=== PATIENT | male | born 1975 | race Caucasian/White ===

== ENCOUNTER 2025-04-19 06:13 | Day surgery (SDC) | payer OTHER, SELFPAY ==
[2025-04-19 08:40] VITALS: BP 150/85; BMI 29.7
[2025-04-19 09:00] VITALS: BMI 29.7
[2025-04-19] MEDS: TYLENOL 1000 MG PO (09:00)
--- NOTE | 2025-04-19 09:01 | HP.FOC2 ---
Focused History & Physical
Chief Complaint
HPI:
Chief Complaint: RIH
HPI / Indication for Planned Procedure: 49 y/o male recently seen in outpt follow up for evaluation of right inguinal swell. examination confirmed presence of a RIH. presents today for operative correction
Relevant Past Medical History: Other (GERD, Anxiety)
Relevant Social History: Negative
Relevant Family History: Negative
Relevant Past Surgical History: Positive for (UHR, lap TEP LIH repair with mesh)
Review of Systems
Review of Pertinent Systems: All Systems Negative
Medication
See Medication form for detailed medications: Yes
Medication List (including Herbals & OTC):
famotidine-Ca carb-mag hydrox 10 mg-800 mg-165 mg chewable tablet (Pepcid Complete) 1 tab PO PRN PRN GERD 04/17/25
multivitamin with minerals-folic acid 200 mcg chewable tablet (Multivitamin Gummies) 2 tab PO DAILY 04/17/25
Medications Reviewed: Yes
Allergies and Reactions
Patient has Allergies: No
Noted Allergies and Reactions:
Allergy/AdvReac Type Severity Reaction Status Date / Time
No Known Allergies Allergy Verified 04/19/25 08:40
Pertinent Physical Exam
All Other Systems: Negative
Head/Neck: Normal
Lungs: Normal
Heart: Normal
Abdomen: Other (RIH)
Extremities: Normal
Neurological: Normal
Diagnosis / Assessment
49 y/o male presenting for operative correction right inguinal hernia
Plan / Procedure
RAL repair RIH with mesh
Anesthesia/Sedation to be done by Anesthesia Provider: Yes
--- NOTE | 2025-04-19 09:03 | W.SUR.PREOP ---
Pre-Operative Surgical Note
-
I have examined this patient prior to the performance of the scheduled procedure.
The patient's condition is unchanged from the time of the current History and
Physical and the patient is able to undergo the scheduled procedure.
[2025-04-19] MEDS: NORMOSOL-R/PLASMALYTE-A 1000 IV (09:10)
--- NOTE | 2025-04-19 10:41 | W.IMMPOSTOP ---
Addendum entered and electronically signed by Kushal Lares MD 04/19/25 10:51:
#[id number]
Original Note:
Surgical Immed Post Op Note
-
Primary Surgeon: Kushal Lares MD
Assisting Surgeon: Emili MCDERMOTT
Pre-op Diagnosis: Right inguinal hernia
Post-op Diagnosis: Right inguinal hernia, indirect
Procedure Performed: Robotic assisted laparoscopic RICHA repair right inguinal hernia with mesh; 3D max large mid weight
Anesthesia Type: GETA +0.25% Marcaine with epi
Specimen / Cultures: None
Estimated Blood Loss: 6 mL
Complications: None immediate
Operative Findings: Right indirect inguinal hernia. Right direct and femoral spaces normal. No significant lipoma of cord structures. 3D max large mid weight mesh repair secured to Pavel's ligament with 2-0 Vicryl stitch x 2. Peritoneal flap
closed with 2-0 Monocryl STRATAFIX spiral. Previous left inguinal hernia pair appears well-healed, no adhesions.
[2025-04-19 11:00] VITALS: BP 134/86; BP 150/85
[2025-04-19 11:15] VITALS: BP 127/91
[2025-04-19 11:30] VITALS: BP 135/88
[2025-04-19 11:40] VITALS: BP 125/85
[2025-04-19 11:55] VITALS: BP 129/81
== END 2025-04-19 12:47 | disposition home or self-care (01) ==
LOC: SDS 06:13
PROVIDERS: ATTENDING PHYSICIAN Surgery
DX: K40.90 Unilateral inguinal hernia, without obstruction or gangrene, not specified as recurrent (principal)
CPT/HCPCS: 49650; C1781